=== PATIENT | male | born 1955 | race Caucasian/White ===

== ENCOUNTER → 2018-05-06 01:05 | Outpatient (CLI) | payer OTHER, SELFPAY | PROVIDERS: PCP Internal Medicine; Visit Provider Dermatology | DX: L40.9 Psoriasis, unspecified (principal) | CPT/HCPCS: 96910 ==

== ENCOUNTER → 2018-05-11 03:00 | Outpatient (CLI) | payer OTHER, SELFPAY | PROVIDERS: PCP Internal Medicine; Visit Provider Dermatology | DX: L40.9 Psoriasis, unspecified (principal) ==

== ENCOUNTER → 2018-05-19 03:10 | Outpatient (CLI) | payer OTHER, SELFPAY | PROVIDERS: PCP Internal Medicine; Visit Provider Dermatology | DX: L40.9 Psoriasis, unspecified (principal) | CPT/HCPCS: 96910 ==

== ENCOUNTER → 2018-05-21 02:53 | Outpatient (CLI) | payer OTHER, SELFPAY | PROVIDERS: PCP Internal Medicine; Visit Provider Dermatology | DX: L40.9 Psoriasis, unspecified (principal) | CPT/HCPCS: 96910 ==

== ENCOUNTER → 2018-05-25 02:37 | Outpatient (CLI) | payer OTHER, SELFPAY | PROVIDERS: PCP Internal Medicine; Visit Provider Dermatology | DX: L40.9 Psoriasis, unspecified (principal) | CPT/HCPCS: 96910 ==

== ENCOUNTER → 2018-05-27 01:57 | Outpatient (CLI) | payer OTHER, SELFPAY | PROVIDERS: PCP Internal Medicine; Visit Provider Dermatology | DX: L40.9 Psoriasis, unspecified (principal) | CPT/HCPCS: 96910 ==

== ENCOUNTER → 2018-05-29 06:20 | Outpatient (CLI) | payer OTHER, SELFPAY | PROVIDERS: PCP Internal Medicine; Visit Provider Dermatology | DX: L40.9 Psoriasis, unspecified (principal) | CPT/HCPCS: 96910 ==

== ENCOUNTER → 2018-06-03 03:19 | Outpatient (CLI) | payer OTHER, SELFPAY | PROVIDERS: PCP Internal Medicine; Visit Provider Dermatology | DX: L40.9 Psoriasis, unspecified (principal) ==

== ENCOUNTER 2018-06-05 03:39 | Outpatient (CLI) | payer OTHER, SELFPAY | END 2018-06-05 03:40 | PROVIDERS: PCP Internal Medicine; Visit Provider Dermatology | DX: L40.9 Psoriasis, unspecified (principal) | CPT/HCPCS: 96910 ==

== ENCOUNTER 2018-06-15 01:19 | Outpatient (CLI) | payer OTHER, SELFPAY | END 2018-06-15 01:39 | PROVIDERS: PCP Internal Medicine; Visit Provider Dermatology | DX: L40.9 Psoriasis, unspecified (principal) | CPT/HCPCS: 96910 ==

== ENCOUNTER 2018-06-17 01:58 | Outpatient (CLI) | payer OTHER, SELFPAY | END 2018-06-17 02:18 | PROVIDERS: PCP Internal Medicine; Visit Provider Dermatology | DX: L40.9 Psoriasis, unspecified (principal) | CPT/HCPCS: 96910 ==

== ENCOUNTER 2018-06-19 01:56 | Outpatient (CLI) | payer OTHER, SELFPAY | END 2018-06-19 02:16 | PROVIDERS: PCP Internal Medicine; Visit Provider Dermatology | DX: L40.9 Psoriasis, unspecified (principal) | CPT/HCPCS: 96910 ==

== ENCOUNTER 2018-06-22 01:35 | Outpatient (CLI) | payer OTHER, SELFPAY | END 2018-06-22 01:55 | PROVIDERS: PCP Internal Medicine; Visit Provider Dermatology | DX: L40.9 Psoriasis, unspecified (principal) | CPT/HCPCS: 96910 ==

== ENCOUNTER 2018-06-24 03:38 | Outpatient (CLI) | payer OTHER, SELFPAY | END 2018-06-24 03:58 | PROVIDERS: PCP Internal Medicine; Visit Provider Dermatology | DX: L40.9 Psoriasis, unspecified (principal) | CPT/HCPCS: 96910 ==

== ENCOUNTER 2018-06-25 14:11 | Outpatient (CLI) | payer OTHER, SELFPAY | END 2018-06-25 14:31 | PROVIDERS: PCP Internal Medicine; Visit Provider Dermatology | DX: L40.9 Psoriasis, unspecified (principal) ==

== ENCOUNTER 2018-06-25 14:12 | Outpatient (CLI) | payer OTHER, SELFPAY | END 2018-06-25 14:32 | PROVIDERS: PCP Internal Medicine; Visit Provider Dermatology | DX: L40.9 Psoriasis, unspecified (principal); Z53.9 Procedure and treatment not carried out, unspecified reason ==

== ENCOUNTER 2018-06-26 01:15 | Outpatient (CLI) | payer OTHER, SELFPAY | END 2018-06-26 01:35 | PROVIDERS: PCP Internal Medicine; Visit Provider Dermatology | DX: L40.9 Psoriasis, unspecified (principal) | CPT/HCPCS: 96910 ==

== ENCOUNTER 2018-07-13 01:10 | Outpatient (CLI) | payer OTHER, SELFPAY | END 2018-07-13 01:30 | PROVIDERS: PCP Internal Medicine; Visit Provider Dermatology | DX: L40.9 Psoriasis, unspecified (principal) | CPT/HCPCS: 96910 ==

== ENCOUNTER 2018-07-17 02:06 | Outpatient (CLI) | payer OTHER, SELFPAY | END 2018-07-17 02:26 | PROVIDERS: PCP Internal Medicine; Visit Provider Dermatology | DX: L49.0 Exfoliation due to erythematous condition involving less than 10 percent of body surface (principal); Z53.8 Procedure and treatment not carried out for other reasons ==

== ENCOUNTER 2018-07-24 03:15 | Outpatient (CLI) | payer OTHER, SELFPAY | END 2018-07-24 03:35 | PROVIDERS: PCP Internal Medicine; Visit Provider Dermatology | DX: Z53.8 Procedure and treatment not carried out for other reasons (principal) ==

== ENCOUNTER 2018-07-27 01:03 | Outpatient (CLI) | payer OTHER, SELFPAY | END 2018-07-27 01:23 | PROVIDERS: PCP Internal Medicine; Visit Provider Dermatology | DX: L40.9 Psoriasis, unspecified (principal) | CPT/HCPCS: 96910 ==

== ENCOUNTER 2018-07-29 02:10 | Outpatient (CLI) | payer OTHER, SELFPAY | END 2018-07-29 02:30 | PROVIDERS: PCP Internal Medicine; Visit Provider Dermatology | DX: L40.9 Psoriasis, unspecified (principal) | CPT/HCPCS: 96910 ==

== ENCOUNTER 2018-07-31 02:46 | Outpatient (CLI) | payer OTHER, SELFPAY | END 2018-07-31 03:06 | PROVIDERS: PCP Internal Medicine; Visit Provider Dermatology | DX: L40.9 Psoriasis, unspecified (principal) | CPT/HCPCS: 96910 ==

== ENCOUNTER 2018-08-03 02:08 | Outpatient (CLI) | payer OTHER, SELFPAY | END 2018-08-03 02:28 | PROVIDERS: PCP Internal Medicine; Visit Provider Dermatology | DX: L40.9 Psoriasis, unspecified (principal); Z53.8 Procedure and treatment not carried out for other reasons ==

== ENCOUNTER 2018-08-05 02:17 | Outpatient (CLI) | payer OTHER, SELFPAY | END 2018-08-05 02:37 | PROVIDERS: PCP Internal Medicine; Visit Provider Dermatology | DX: L40.9 Psoriasis, unspecified (principal) | CPT/HCPCS: 96910 ==

== ENCOUNTER 2018-08-07 02:09 | Outpatient (CLI) | payer OTHER, SELFPAY | END 2018-08-07 02:29 | PROVIDERS: PCP Internal Medicine; Visit Provider Dermatology | DX: L40.9 Psoriasis, unspecified (principal) | CPT/HCPCS: 96910 ==

== ENCOUNTER 2018-08-10 01:56 | Outpatient (CLI) | payer OTHER, SELFPAY | END 2018-08-10 02:16 | PROVIDERS: PCP Internal Medicine; Visit Provider Dermatology | DX: L40.9 Psoriasis, unspecified (principal) | CPT/HCPCS: 96910 ==

== ENCOUNTER 2018-08-12 02:06 | Outpatient (CLI) | payer OTHER, SELFPAY | END 2018-08-12 02:26 | PROVIDERS: PCP Internal Medicine; Visit Provider Dermatology | DX: L40.9 Psoriasis, unspecified (principal) | CPT/HCPCS: 96910 ==

== ENCOUNTER 2018-08-14 02:44 | Outpatient (CLI) | payer OTHER, SELFPAY | END 2018-08-14 03:04 | PROVIDERS: PCP Internal Medicine; Visit Provider Dermatology | DX: L40.9 Psoriasis, unspecified (principal); Z53.8 Procedure and treatment not carried out for other reasons ==

== ENCOUNTER 2018-08-17 01:56 | Outpatient (CLI) | payer OTHER, SELFPAY | END 2018-08-17 02:16 | PROVIDERS: PCP Internal Medicine; Visit Provider Dermatology | DX: L40.9 Psoriasis, unspecified (principal) | CPT/HCPCS: 96910 ==

== ENCOUNTER 2018-08-21 02:18 | Outpatient (CLI) | payer OTHER, SELFPAY | END 2018-08-21 02:38 | PROVIDERS: PCP Internal Medicine; Visit Provider Dermatology | DX: L40.9 Psoriasis, unspecified (principal); Z53.8 Procedure and treatment not carried out for other reasons ==

== ENCOUNTER 2018-08-24 01:57 | Outpatient (CLI) | payer OTHER, SELFPAY | END 2018-08-24 02:17 | PROVIDERS: PCP Internal Medicine; Visit Provider Dermatology | DX: L40.9 Psoriasis, unspecified (principal) | CPT/HCPCS: 96910 ==

== ENCOUNTER 2018-08-26 01:48 | Outpatient (CLI) | payer OTHER, SELFPAY | END 2018-08-26 02:08 | PROVIDERS: PCP Internal Medicine; Visit Provider Dermatology | DX: L40.9 Psoriasis, unspecified (principal); Z53.8 Procedure and treatment not carried out for other reasons ==

== ENCOUNTER 2018-08-31 02:11 | Outpatient (CLI) | payer OTHER, SELFPAY | END 2018-08-31 02:31 | PROVIDERS: PCP Internal Medicine; Visit Provider Dermatology | DX: L40.9 Psoriasis, unspecified (principal) | CPT/HCPCS: 96910 ==

== ENCOUNTER 2018-09-02 02:07 | Outpatient (CLI) | payer OTHER, SELFPAY | END 2018-09-02 02:27 | PROVIDERS: PCP Internal Medicine; Visit Provider Dermatology | DX: L40.9 Psoriasis, unspecified (principal) ==

== ENCOUNTER 2018-09-04 10:34 | Outpatient (CLI) | payer OTHER, SELFPAY | END 2018-09-04 10:54 | PROVIDERS: PCP Internal Medicine; Visit Provider Dermatology | DX: L40.9 Psoriasis, unspecified (principal) | CPT/HCPCS: 96910 ==

== ENCOUNTER 2018-09-07 01:36 | Outpatient (CLI) | payer OTHER, SELFPAY | END 2018-09-07 01:56 | PROVIDERS: PCP Internal Medicine; Visit Provider Dermatology | DX: L40.9 Psoriasis, unspecified (principal) | CPT/HCPCS: 96910 ==

== ENCOUNTER 2018-09-09 02:32 | Outpatient (CLI) | payer OTHER, SELFPAY | END 2018-09-09 02:52 | PROVIDERS: PCP Internal Medicine; Visit Provider Dermatology | DX: L40.9 Psoriasis, unspecified (principal) | CPT/HCPCS: 96910 ==

== ENCOUNTER 2018-09-11 02:45 | Outpatient (CLI) | payer OTHER, SELFPAY | END 2018-09-11 03:05 | PROVIDERS: PCP Internal Medicine; Visit Provider Dermatology | DX: L40.9 Psoriasis, unspecified (principal); Z53.8 Procedure and treatment not carried out for other reasons ==

== ENCOUNTER 2018-09-14 02:37 | Outpatient (CLI) | payer OTHER, SELFPAY | END 2018-09-14 02:57 | PROVIDERS: PCP Internal Medicine; Visit Provider Dermatology | DX: L40.9 Psoriasis, unspecified (principal); Z53.8 Procedure and treatment not carried out for other reasons ==

== ENCOUNTER 2018-09-15 02:20 | Outpatient (CLI) | payer OTHER, SELFPAY | END 2018-09-15 02:40 | PROVIDERS: PCP Internal Medicine; Visit Provider Dermatology | DX: L40.9 Psoriasis, unspecified (principal) | CPT/HCPCS: 96910 ==

== ENCOUNTER 2018-09-17 02:06 | Outpatient (CLI) | payer OTHER, SELFPAY | END 2018-09-17 02:26 | PROVIDERS: PCP Internal Medicine; Visit Provider Dermatology | DX: L40.9 Psoriasis, unspecified (principal); Z53.8 Procedure and treatment not carried out for other reasons ==